=== PATIENT | female | born 1985 | race Caucasian/White ===

== ENCOUNTER 2019-03-14 02:05 | Emergency (ER) | payer BC ==
[~2019-03-14] VITALS: Ht 182.9 cm; Wt 81.6 kg
[2019-03-14] MEDS ORDERED: ASPIRIN 81 MG TAB.CHEW PO ONE (03:00)
[2019-03-14] MEDS ORDERED: ONDANSETRON 4 MG TAB.RAPDIS SL ONE (03:00)
[2019-03-14] MEDS ORDERED: HYDROCODONE/APAP 10/325MG 1 EA TABLET PO ONE (03:00)
[2019-03-14] MEDS ORDERED: ONDANSETRON 4 MG TAB.RAPDIS ONE (03:11)
[2019-03-14] MEDS ORDERED: HYDROCODONE/APAP 10/325MG 1 EA TABLET ONE (03:11)
[2019-03-14] MEDS ORDERED: ASPIRIN 81 MG TAB.CHEW ONE (03:11)
[2019-03-14] MEDS ORDERED: ASPIRIN EC 81 MG TABLET.DR PO ONE (03:14)
[2019-03-14 03:27] LABS: CALCIUM, SERUM 9.1 mg/dL (8.5-10.1); CARBON DIOXIDE 29 mmol/L (21-32); CHLORIDE 104 mmol/L (98-107); CREATININE 0.7 mg/dL (0.6-1.3); GLUCOSE 82 mg/dL (74-106); POTASSIUM 4.2 mmol/L (3.5-5.1); SODIUM SERUM 139 mmol/L (136-145); UREA NITROGEN, BLOOD 11 mg/dL (7-18)
[2019-03-14 03:39] LABS: ALANINE AMINOTRANSFERASE 25 U/L (12-78); ALBUMIN 4.3 g/dL (3.4-5.0); ALKALINE PHOSPHATASE 40 U/L (46-116); ASPARTATE AMINOTRANSFERASE 14 U/L (15-37); B-TYPE NATRIURETIC PEPTIDE 45 PG/ML (0-125); BASOPHILS % (AUTO) 0.6 % (0.0-2.0); BILIRUBIN,DIRECT 0.1 mg/dL (0.0-0.2); BILIRUBIN,TOTAL 0.5 mg/dL (0.2-1.0); EOSINOPHILS % (AUTO) 1.7 % (0.0-6.0); HEMATOCRIT 41 % (33-45); HEMOGLOBIN 14.2 g/dL (11.5-14.8); LYMPHOCYTES # (AUTO) 2.1 /CMM (0.8-4.8); LYMPHOCYTES % (AUTO) 40.2 % (20.0-44.0); MEAN CORPUSCULAR HGB CONC 35 g/dl (31.0-36.0); MEAN CORPUSCULAR VOLUME 97 fL (82-100); MONOCYTES # (AUTO) 0.4 /CMM (0.1-1.30); MONOCYTES % (AUTO) 7.6 % (2.0-12.0); NEUTROPHILS # (AUTO) 2.6 /CMM (1.8-8.9); NEUTROPHILS % (AUTO) 49.9 % (43.0-81.0); PLATELET COUNT (AUTO) 217 /CMM (150-450); RED BLOOD CELL COUNT(AUTO) 4.17 MIL/uL (4.0-5.2); TOTAL PROTEIN, SERUM 7.4 g/dL (6.4-8.2); WHITE BLOOD COUNT (AUTO) 5.2 K/uL (4.3-11.0)
--- NOTE | 2019-03-14 04:27 | NUR ---
PT TO RADIOLOGY
--- NOTE | 2019-03-14 04:53 | NUR ---
PT RETURNED FROM RADIOLOGY
--- NOTE | 2019-03-14 05:13 | NUR ---
DR. COONEY AT BEDSIDE SPEAKING TO PT REGARDING PLAN OF CARE/ RESULTS.
--- NOTE | 2019-03-14 05:36 | NUR ---
Patient discharged to home in stable condition. Written and verbal after care instructions given. Patient verbalizes understanding of instruction. ambulatory with a steady gait
[2019-03-14 05:38] VITALS: BP 124/77
== END 2019-03-14 05:39 | disposition home or self-care (01) ==
LOC: ER 02:12
DX: G44.209 Tension-type headache, unspecified, not intractable (principal); R07.89 Other chest pain; J45.909 Unspecified asthma, uncomplicated; Z88.8 Allergy status to other drugs, medicaments and biological substances; Z60.2 Problems related to living alone
CPT/HCPCS: 36415; 70450; 71045; 80048; 80076; 83880; 84484; 85025; 85730; 93005; 99284; Q0162